=== PATIENT | female | born 1985 | race Caucasian/White ===

== ENCOUNTER 2017-03-13 09:50 | Emergency (ER) | payer OTHER ==
[~2017-03-13] VITALS: Ht 172.7 cm; Wt 68.0 kg
[2017-03-13 10:08] VITALS: BP 111/65
--- NOTE | 2017-03-13 10:23 | PHYS DOC ---
General Chief Complaint: SORE THROAT Stated Complaint: SINUS PAIN/CONGESTION Time Seen by MD: 10:04 Source: patient Exam Limitations: no limitations Problems: History of Present Illness Initial Comments Pt is 31/F to ED c/o URI. Pt taking vigamox past week for L conjunctivitis, sx have improved. Now with L facial pressure, yellow cough, L upper dental aching. Sx c/w prior sinus infections. No fever/chills/vision change/focal neurodef/neck stiffness/n/v/d/cp/sob Timing/Duration: gradual, last week Severity: moderate Location: eye (L), facial Prearrival Treatment: over the counter meds, prescription meds Modifying Factors: worse with coughing, improves with rest Associated Symptoms: nasal congestion/drainage, sinus infection, sore throat, other Allergies: Coded Allergies: No Known Drug Allergies (Unverified , 03/13/17) Past Medical History Medical History: allergies (migraines) Surgical History: noncontributory Social History Smoker: non-smoker Alcohol: none Drugs: none Constitutional: denies chills, denies fever, denies malaise Eyes: see HPI Ears: denies dizziness, denies pain, denies tinnitus Nose: denies clots, congestion, denies epistaxis Throat: pain, denies swelling, denies discharge, denies neck stiffness Respiratory: cough, denies shortness of breath, denies wheezing Cardiovascular: denies chest pain, denies palpitations, denies syncope Gastrointestinal: denies diarrhea, denies nausea, denies vomiting Physical Exam General Appearance: WD/WN, no apparent distress Eyes: bilateral eye normal inspection, bilateral eye PERRL, bilateral eye EOMI Nose: sinus tenderness (L maxillary, green nasal/PND) Mouth/Throat: pharynx normal Neck: non-tender, supple Cardiovascular/Respiratory: normal peripheral pulses, no respiratory distress Neurologic/Psychiatric: relief pilot II-XII nml as tested, no motor/sensory deficits, alert, normal mood/affect, oriented x 3 Skin: normal color, warm/dry Departure Time of Disposition: 10:21 Disposition: 01 HOME, SELF-CARE Diagnosis: Acute sinusitis, L Conjunctivitis Condition: GOOD Patient Instructions: Sinusitis, Ukul-di-Ovms Additional Instructions: Continue current meds. OTC tylenol, ibuprofen, diphenhydramine, and analgesic throat sprays as needed. Rx: amoxicillin guaifenesin Take meds with food. Aggressive hydration with gatorade, water while taking guaifenesin. Follow up with your doctor in 10-14 days for recheck. Return to ED with new or changing symptoms. CELESTE CONLEY DO March 13, 2017 10:23
[2017-03-13] MEDS ORDERED: GUAI600T47 PO (10:24)
[2017-03-13] MEDS ORDERED: AMOX875T PO (10:24)
== END 2017-03-13 10:30 | disposition home or self-care (01) ==
LOC: ER 09:50
DX: J01.90 Acute sinusitis, unspecified (principal); H10.9 Unspecified conjunctivitis; G43.909 Migraine, unspecified, not intractable, without status migrainosus; K08.89 Other specified disorders of teeth and supporting structures
CPT/HCPCS: 99283